=== PATIENT | male | born 1950 | race Caucasian/White ===

== ENCOUNTER 2020-10-30 13:29 | Observation (INO) ==
[2020-10-30] MEDS ORDERED: VANCOMYCIN INJ 1,000 MG in SODIUM CHLORIDE 0.9% 250 ML IV STA (15:30)
[2020-10-30 15:51] LABS: Basophils # 0.1 10*3/uL (0.0-0.2); Eosinophils # 0.3 10*3/uL (0.0-0.87); Eosinophils % 3.6 % (0.00-10.9); Hematocrit 43.1 VOL% (42.0-52.0); Hemoglobin 14.6 GM/DL (14.0-18.0); Immature Granulocytes % 0.3 %; Immature Granulocytes Absolute 0.03 #; Lymphocytes # 2.3 10*3/uL (1.4-4.0); Lymphocytes % 24.1 % (21.2-54.2); Mean Corpuscular HGB Conc 33.9 GM/DL (32-36); Mean Corpuscular Volume 98.4 FL (87-102); Mean Platelet Volume 10.9 FL (9.6-12.0); Monocytes % 10.7 % (1.7-12.7); Neutrophils % 60.3 % (38.7-73.9); Platelet Count 253 T/CUMM (130-400); Red Blood Count 4.38 MC/CUMM (3.8-5.5); Red Cell Distribution Width 12.6 % (9.3-17.3); White Blood Count 9.4 T/CUMM (4-12)
[2020-10-30 16:07] LABS: Alanine Aminotransferase 45 U/L (16-61); Alkaline Phosphatase 75 U/L (45-117); Aspartate Amino Transferase 29 U/L (0-37); Blood Urea Nitrogen 14 MG/DL (7-18); Calcium 8.4 MG/DL (8.5-10.1); Estimated Glom Filtration Rate 98 ML/MIN; Glucose 93 MG/DL (74-106); Osmolality,Calculated 277.5 MOS/KG (273-304); Total Protein 7.9 G/DL (6.4-8.3)
[2020-10-30] MEDS ORDERED: DEXTROSE 50% 25 GM/50 ML VIAL IV PRN (16:09)
[2020-10-30] MEDS ORDERED: GLUCAGON 1 MG VIAL IM PRN (16:09)
[2020-10-30] MEDS ORDERED: LIDOCAINE 2% 5 ML VIAL ONE (16:28)
[2020-10-30] MEDS ORDERED: propofoL 200 MG/20 ML VIAL IV ONE ×2 (16:28→17:45)
[2020-10-30] MEDS ORDERED: MIDAZOLAM 2 MG/2 ML VIAL ONE (16:28)
[2020-10-30] MEDS ORDERED: DEXTROSE 5% NACL 0.45% 1,000 ML IV SCH (16:30)
[2020-10-30] MEDS ORDERED: LIDOCAINE 1% 20 ML VIAL ONE (17:04)
[2020-10-30] MEDS ORDERED: LACTATED RINGERS 1,000 ML IV ONE (17:45)
[2020-10-30] MEDS ORDERED: MUPIROCIN 2% OINT 22 GM TUBE TOP ONE (17:46)
[2020-10-30] MEDS ORDERED: TISSUE ADHESIVE 1 EACH APPLICATOR TOP ONE (17:46)
[2020-10-30] MEDS: HYDROmorphone 2 MG/1 ML VIAL IV PRN ×4 (18:10→18:25)
[2020-10-30] MEDS ORDERED: ATORVASTATIN 20 MG TABLET PO SCH (21:00)
[2020-10-30] MEDS ORDERED: ENOXAPARIN 40 MG/0.4 ML SYRINGE SUBCUT SCH (21:00)
[2020-10-30] MEDS ORDERED: MELATONIN 3 MG TABLET PO SCH (21:00)
[2020-10-30] MEDS: GABAPENTIN 600 MG TABLET PO SCH (21:52)
[2020-10-30] MEDS: BUDESONIDE/FORMOTEROL 160-4.5 INHALER 6 GM INH SCH (22:03)
[2020-10-30] MEDS: ALBUTEROL 2.5 MG/3 ML NEB RESP TX SCH (23:18)
[2020-10-31] MEDS: oxyCODONE/ACETAMINOPHEN 5-325 MG TABLET PO PRN ×2 (00:13→09:20)
[2020-10-31] MEDS: ALBUTEROL 2.5 MG/3 ML NEB RESP TX SCH (06:59)
[2020-10-31] MEDS ORDERED: THIAMINE 100 MG TABLET PO SCH ×2 (09:00)
[2020-10-31] MEDS ORDERED: allopurinoL 300 MG TABLET PO SCH (09:00)
[2020-10-31] MEDS ORDERED: FOLIC ACID 1 MG TABLET PO SCH ×2 (09:00)
[2020-10-31] MEDS ORDERED: amLODIPine 2.5 MG TABLET PO SCH (09:00)
[2020-10-31] MEDS ORDERED: DULoxetine 30 MG CAPSULE PO SCH (09:00)
[2020-10-31] MEDS ORDERED: ASPIRIN EC 81 MG TABLET PO SCH (09:00)
[2020-10-31] MEDS: GABAPENTIN 600 MG TABLET PO SCH (09:21)
[2020-10-31] MEDS: BUDESONIDE/FORMOTEROL 160-4.5 INHALER 6 GM INH SCH (09:34)
[2020-10-31] MEDS ORDERED: VANCOMYCIN INJ 2,000 MG in SODIUM CHLORIDE 0.9% 500 ML IV SCH (10:00)
[2020-10-31 10:19] LABS: Basophils # 0.1 10*3/uL (0.0-0.2); Eosinophils # 0.3 10*3/uL (0.0-0.87); Eosinophils % 4.8 % (0.00-10.9); Hematocrit 40.6 VOL% (42.0-52.0); Hemoglobin 13.9 GM/DL (14.0-18.0); Immature Granulocytes % 0.4 %; Immature Granulocytes Absolute 0.03 #; Lymphocytes % 28.7 % (21.2-54.2); Mean Corpuscular HGB Conc 34.2 GM/DL (32-36); Mean Corpuscular Volume 98.8 FL (87-102); Mean Platelet Volume 10.7 FL (9.6-12.0); Monocytes % 6.4 % (1.7-12.7); Neutrophils % 58.7 % (38.7-73.9); Platelet Count 207 T/CUMM (130-400); Red Blood Count 4.11 MC/CUMM (3.8-5.5); Red Cell Distribution Width 12.7 % (9.3-17.3); White Blood Count 6.8 T/CUMM (4-12)
[2020-10-31 10:47] LABS: Calcium 8.1 MG/DL (8.5-10.1); Osmolality,Calculated 276.7 MOS/KG (273-304)
[2020-10-31 16:29] VITALS: BP 165/83
== END 2020-10-31 17:45 | disposition home or self-care (01) ==
LOC: N.3E 13:29 → N.ED 13:29 → SUATTDRO 16:09 → N.ED 16:45
PROVIDERS: ADMIT Internal Medicine; ATTEND Internal Medicine